=== PATIENT | male | born 1970 | race Caucasian/White ===

== ENCOUNTER 2016-06-08 14:14 | Emergency (ER) | payer OTHER, SELFPAY ==
[2016-06-08 14:29] VITALS: BMI 38.0
[2016-06-08] MEDS ORDERED: NS 1,000 ML IV ONE (14:50)
[2016-06-08] MEDS ORDERED: SODIUM CHLORIDE 0.9% 3 ML FLUSH FLUSH PRN (14:50)
[2016-06-08] MEDS ORDERED: ONDANSETRON HCL 4 MG/2 ML VIAL IV ONE ×2 (15:05→17:31)
[2016-06-08] MEDS ORDERED: MORPHINE 4 MG/ML INJECTION IV ONE (15:05)
--- NOTE | 2016-06-08 15:08 | EDPRACDOC ---
- General Information Information Source: Patient Mode Of Arrival: Ambulance - History of Present Illness Onset: this am Pain Location: Reports: Epigastric, LUQ Pain Context: Reports: Spontaneous Pain Severity: Moderate Pain Quality: Reports: Aching Adult Abdominal History: Reports: Similar Pain (dx) Modifying Factors: improves with: Nothing Associated Signs & Symptoms: Reports: Nausea, Vomiting, Diarrhea. Denies: Hematemesis, Melena, Dysuria, Fever, Urgency Oral Intake: Decreased Urinary Output: Decreased <Lisa Garces - Last Filed: 06/08/16 15:05> <Hill Coates - Last Filed: 06/08/16 21:11> - General Information Chief Complaint: Abdominal Pain Stated Complaint: ABD. AND BACK PAIN Time Seen by Provider: 06/08/16 14:50 Home Medications: Home Medications Enalapril Maleate [Vasotec] 20 mg PO DAILY 05/20/14 Metoprolol Tartrate [Lopressor] 100 mg PO BID 05/20/14 Verapamil HCl [Verapamil ER] 120 mg PO DAILY 05/20/14 Vitamin B Complex [B Complex] 1 tab PO DAILY 05/20/14 Vitamins, Multiple [Unicap] 1 cap PO DAILY 05/20/14 Gabapentin [Neurontin] 900 mg PO TID 04/14/15 HydrOXYzine Pamoate (Anxiety) [Vistaril] 25 mg PO Q8H PRN 04/14/15 Tramadol HCl [Ultram] 100 mg PO DAILY 04/14/15 Omeprazole 20 mg PO DAILY 06/08/16 Sildenafil Citrate [Viagra] 100 mg PO DIR PRN 06/08/16 Zolpidem Tartrate [Ambien] 10 mg PO QHS PRN 06/08/16 Allergies/Adverse Reactions: Allergies Allergy/AdvReac Type Severity Reaction Status Date / Time No Known Allergies Allergy Verified 04/14/15 09:47 - History of Present Illness HPI: Patient reports he is a heavy drinker, reports he has a hx of pancreatitis and has upper abdominal pain and low back pain since this AM. Patient reports nausea /vomiting/diarrhea. Feels "hot" but no know fever. Denies CP, SOB. Reports drank 7 beers today - normally drinks 24. Denies bloody stool or emesis. (Lisa Garces MD NOTE SEEN AND EXAMINED; N/V/D; LONG HX OF ETOH. INTOXICATED HERE. (Hill Coates) ED Past Medical History - History Reviewed Yes Nurses notes reviewed and agree except as marked - Patient Medical History Cardiac History: Reports: Hypertension, Hypercholesterolemia (Intermittent) Respiratory History: Denies: Asthma, COPD Psychological History: Reports: Depression, Anxiety Systemic History: Denies: Cancer - Family Medical History Reports: Hypertension (FATHER), Diabetes (MOTHER), Cardiac Disorders - Social Medical History Smoking Status: Current some day smoker ETOH: Alcoholic Substance Abuse: None Lives In: Home <Ileana Garcestany Rk - Last Filed: 06/08/16 15:05> EDM Review of Systems - Review of Systems ROS Negative Except as Marked: Yes All systems reviewed and were negative except as marked Constitutional: No Symptoms Reported Eyes: No Symptoms Reported Ears: No Symptoms Reported Respiratory: No Symptoms Reported Cardiovascular: No Symptoms Reported Gastrointestinal: Diarrhea, Nausea, Pain, Vomiting Genitourinary: No Symptoms Reported Neurological: No Symptoms Reported <Ileana Garcestany Rk Last Filed: 06/08/16 15:05> - Physical Exam Constitutional: Alert (Awake), No apparent distress Oriented to: Time, Person, Place - HEENT Head: Normal ( normocephalic) Eye Exam: Normal (PERRL, EOMI, Sclera white) Nose: No Symptoms Reported (septum midline) Neck: Normal (FROM, trachea at midline) - Respiratory/Cardiovascular Respiratory: Normal - CTA (BBS clear to auscultation without adventitious sounds ) Cardiovascular: Normal (RRR without murmur, gallop or rub) - GI Auscultation: Normal (NABS) Tenderness: Moderate, LUQ, Epigastric - Musculoskeletal Back: Normal (Non-Tender) Extremities: Normal (Normal tone, Pulses 2+ No cyanosis or edema, FROM) - Integumentary Skin: Normal, Warm, Dry Lymphatics: Normal (no adenopathy) - Neurologic Memory Impaired: Normal Motor Function: Normal (Normal tone, Pulses 2+ No cyanosis or edema, FROM) Mood Description: Normal Thought: Coherent <DezLisa Rk - Last Filed: 06/08/16 15:05> <Lisa Garces Rk - Last Filed: 06/08/16 15:05> - Results 06/08/16 14:33 06/08/16 14:33 <Hill Coates - Last Filed: 06/08/16 21:11> - Results WBC 7.0 xk/uL (3.8-10.8) 06/08/16 14:33 RBC 5.49 xM/uL (4.70-6.10) 06/08/16 14:33 Hgb 16.8 g/dL (14.0-18.0) 06/08/16 14:33 Hct 49.3 % (42-52) 06/08/16 14:33 MCV 90 fL (80-94) 06/08/16 14:33 MCH 30.6 pg (27-32) 06/08/16 14:33 MCHC 34.1 g/dl (33-36) 06/08/16 14:33 RDW 15.6 % (11.5-14.5) H 06/08/16 14:33 Plt Count 108 xk/uL (130-400) L 06/08/16 14:33 MPV 9.1 fL (7.4-10.4) 06/08/16 14:33 Neut % (Auto) 59.1 % (45-76) 06/08/16 14:33 Lymph % (Auto) 33.7 % (17-44) 06/08/16 14:33 [place] % (Auto) 6.4 % (3-10) 06/08/16 14:33 Eos % (Auto) 0.3 % (0-5) 06/08/16 14:33 Baso % (Auto) 0.5 % (0-2) 06/08/16 14:33 Absolute Neuts (auto) 4.13 xk/uL (1.7-8.2) 06/08/16 14:33 Absolute Lymphs (auto) 2.31 xk/uL (0.65-4.75) 06/08/16 14:33 PT 14.0 SEC (9.2-11.2) H 06/08/16 19:00 INR 1.4 06/08/16 19:00 Puncture Site Right radial 06/08/16 16:40 pH 7.360 pH UNITS (7.35-7.45) 06/08/16 16:40 pCO2 44.0 mmHg (35-45) 06/08/16 16:40 pO2 65.0 mmHg (80-100) L 06/08/16 16:40 HCO3 24.9 MMOL/L (22-26) 06/08/16 16:40 Total CO2 26.3 MMOL/L (23-27) 06/08/16 16:40 Base Excess -0.8 (+/- 2) 06/08/16 16:40 FiO2 % 0.21 06/08/16 16:40 Specimen Drawn By Piksa 06/08/16 16:40 Sodium 127 mEq/L (137-146) L 06/08/16 14:33 Potassium 4.7 mEq/L (3.5-5.1) 06/08/16 14:33 Chloride 89 mEq/L (98-107) L 06/08/16 14:33 Carbon Dioxide 21 mMOL/L (22-33) L 06/08/16 14:33 Anion Gap 22 mEq/L (8-16) H 06/08/16 14:33 BUN 12 MG/DL (9-20) 06/08/16 14:33 Creatinine 0.60 MG/DL (0.66-1.25) L 06/08/16 14:33 Estimated GFR (MDRD) > 60 mL/min (>=60) 06/08/16 14:33 Glucose 111 MG/DL (70-99) H 06/08/16 14:33 Calculated Osmolality 246 MOs/Kg (270-290) L 06/08/16 14:33 Calcium 8.5 MG/DL (8.4-10.2) 06/08/16 14:33 Total Bilirubin 5.6 MG/DL (0.2-1.3) H 06/08/16 14:33 AST 363 IU/L (17-59) H 06/08/16 14:33 ALT 194 IU/L (21-72) H 06/08/16 14:33 Alkaline Phosphatase 266 IU/L (38-126) H 06/08/16 14:33 Ammonia < 9.0 umol/L (9.0-30.0) L 06/08/16 19:00 Total Protein 8.0 G/DL (6.3-8.2) 06/08/16 14:33 Albumin 4.1 G/DL (3.5-5.0) 06/08/16 14:33 Lipase 358 U/L (23-300) H 06/08/16 14:33 Urine Color Yellow 06/08/16 17:15 Urine Clarity Clear 06/08/16 17:15 Urine pH 5.0 (5.0-8.0) 06/08/16 17:15 Ur Specific [place] 1.005 (1.003-1.035) 06/08/16 17:15 Urine Protein Neg (NEG/TRACE) 06/08/16 17:15 Urine Glucose (UA) Neg (NEGATIVE) 06/08/16 17:15 Urine Ketones Neg (NEGATIVE) 06/08/16 17:15 Urine Occult Blood Neg (NEG/TRACE) 06/08/16 17:15 Urine Nitrite Neg (NEGATIVE) 06/08/16 17:15 Urine Bilirubin Neg (NEGATIVE) 06/08/16 17:15 Urine Urobilinogen 0.2 MG/DL (0-1) 06/08/16 17:15 Ur Leukocyte Esterase Neg (NEGATIVE) 06/08/16 17:15 Urine RBC 0-2 (0-2) 06/08/16 17:15 Urine WBC 0-2 (0-2) 06/08/16 17:15 Urine Bacteria Few (NEG/FEW) 06/08/16 17:15 Hyaline Casts 0-2 (0-2) 06/08/16 17:15 Urine Opiates Screen *positive* (NEGATIVE) H 06/08/16 17:15 Ur Oxycodone Screen Neg (NEGATIVE) 06/08/16 17:15 Urine Methadone Screen Neg (NEGATIVE) 06/08/16 17:15 Ur Barbiturates Screen Neg (NEGATIVE) 06/08/16 17:15 Ur Tricyclics Screen Neg (NEGATIVE) 06/08/16 17:15 Ur Phencyclidine Scrn Neg (NEGATIVE) 06/08/16 17:15 Ur Amphetamines Screen Neg (NEGATIVE) 06/08/16 17:15 U Methamphetamines Scrn Neg (NEGATIVE) 06/08/16 17:15 Urine MDMA Screen Neg (NEGATIVE) 06/08/16 17:15 U Benzodiazepines Scrn Neg (NEGATIVE) 06/08/16 17:15 Urine Cocaine Screen Neg (NEGATIVE) 06/08/16 17:15 Ur THC Screen Neg (NEGATIVE) 06/08/16 17:15 Plasma/Serum Ethyl Alc 0.24 % (<0.01) H 06/08/16 14:33 Lab Results 06/08/16 06/08/16 06/08/16 19:00 19:00 17:15 WBC RBC Hgb Hct MCV MCH MCHC RDW Plt Count MPV Neut % (Auto) Lymph % (Auto) [place] % (Auto) Eos % (Auto) Baso % (Auto) Absolute Neuts (auto) Absolute Lymphs (auto) PT 14.0 H INR 1.4 Puncture Site pH pCO2 pO2 HCO3 Total CO2 Base Excess FiO2 % Specimen Drawn By Sodium Potassium Chloride Carbon Dioxide Anion Gap BUN Creatinine Estimated GFR (MDRD) Glucose Calculated Osmolality Calcium Total Bilirubin AST ALT Alkaline Phosphatase Ammonia < 9.0 L Total Protein Albumin Lipase Urine Color Yellow Urine Clarity Clear Urine pH 5.0 Ur Specific [place] 1.005 Urine Protein Neg Urine Glucose (UA) Neg Urine Ketones Neg Urine Occult Blood Neg Urine Nitrite Neg Urine Bilirubin Neg Urine Urobilinogen 0.2 Ur Leukocyte Esterase Neg Urine RBC 0-2 Urine WBC 0-2 Urine Bacteria Few Hyaline Casts 0-2 Urine Opiates Screen Ur Oxycodone Screen Urine Methadone Screen Ur Barbiturates Screen Ur Tricyclics Screen Ur Phencyclidine Scrn Ur Amphetamines Screen U Methamphetamines Scrn Urine MDMA Screen U Benzodiazepines Scrn Urine Cocaine Screen Ur THC Screen Plasma/Serum Ethyl Alc 06/08/16 06/08/16 06/08/16 17:15 16:40 14:33 WBC 7.0 RBC 5.49 Hgb 16.8 Hct 49.3 MCV 90 MCH 30.6 MCHC 34.1 RDW 15.6 H Plt Count 108 L MPV 9.1 Neut % (Auto) 59.1 Lymph % (Auto) 33.7 [place] % (Auto) 6.4 Eos % (Auto) 0.3 Baso % (Auto) 0.5 Absolute Neuts (auto) 4.13 Absolute Lymphs (auto) 2.31 PT INR Puncture Site Right radial pH 7.360 pCO2 44.0 pO2 65.0 L HCO3 24.9 Total CO2 26.3 Base Excess -0.8 FiO2 % 0.21 Specimen Drawn By Piksa Sodium Potassium Chloride Carbon Dioxide Anion Gap BUN Creatinine Estimated GFR (MDRD) Glucose Calculated Osmolality Calcium Total Bilirubin AST ALT Alkaline Phosphatase Ammonia Total Protein Albumin Lipase Urine Color Urine Clarity Urine pH Ur Specific [place] Urine Protein Urine Glucose (UA) Urine Ketones Urine Occult Blood Urine Nitrite Urine Bilirubin Urine Urobilinogen Ur Leukocyte Esterase Urine RBC Urine WBC Urine Bacteria Hyaline Casts Urine Opiates Screen *positive* H Ur Oxycodone Screen Neg Urine Methadone Screen Neg Ur Barbiturates Screen Neg Ur Tricyclics Screen Neg Ur Phencyclidine Scrn Neg Ur Amphetamines Screen Neg U Methamphetamines Scrn Neg Urine MDMA Screen Neg U Benzodiazepines Scrn Neg Urine Cocaine Screen Neg Ur THC Screen Neg Plasma/Serum Ethyl Alc 06/08/16 06/08/16 14:33 14:33 WBC RBC Hgb Hct MCV MCH MCHC RDW Plt Count MPV Neut % (Auto) Lymph % (Auto) [place] % (Auto) Eos % (Auto) Baso % (Auto) Absolute Neuts (auto) Absolute Lymphs (auto) PT INR Puncture Site pH pCO2 pO2 HCO3 Total CO2 Base Excess FiO2 % Specimen Drawn By Sodium 127 L Potassium 4.7 Chloride 89 L Carbon Dioxide 21 L Anion Gap 22 H BUN 12 Creatinine 0.60 L Estimated GFR (MDRD) > 60 Glucose 111 H Calculated Osmolality 246 L Calcium 8.5 Total Bilirubin 5.6 H AST 363 H ALT 194 H Alkaline Phosphatase 266 H Ammonia Total Protein 8.0 Albumin 4.1 Lipase 358 H Urine Color Urine Clarity Urine pH Ur Specific [place] Urine Protein Urine Glucose (UA) Urine Ketones Urine Occult Blood Urine Nitrite Urine Bilirubin Urine Urobilinogen Ur Leukocyte Esterase Urine RBC Urine WBC Urine Bacteria Hyaline Casts Urine Opiates Screen Ur Oxycodone Screen Urine Methadone Screen Ur Barbiturates Screen Ur Tricyclics Screen Ur Phencyclidine Scrn Ur Amphetamines Screen U Methamphetamines Scrn Urine MDMA Screen U Benzodiazepines Scrn Urine Cocaine Screen Ur THC Screen Plasma/Serum Ethyl Alc 0.24 H (Hill Coates) - Additional Information HOSP SPOKE WITH [facility]. NOW [facility] WANTS HIM TRANSFERRED. NO GI COVERAGE AT THIS WEEK. [facility]----NO BEDS CALLED [facility]=-WILL NOT ACCEPT; TOO MANY PTS IN LOBBY AND TOO MANY WAITING FOR ADMISSION NOW TRYING OTHER HOSPITALS IN [facility] AND [facility] [address]. SHE WILL TRY TO LOCATE OTHER SISTER FACILITIES (Hill Coates) <Lisa Garces - Last Filed: 06/08/16 15:05> - Departure Yes I personally saw and evaluated the patient. Disposition: Trans. to Other Hospital Decision to Transfer Time: 19:30 (BRYN) Decision to Admit Time: 18:43 (ALBA) Decision to admit date: 06/08/16 Decision to admit: from ED - Physician Consulted GI Time Called: 18:43 (KRAIG) <Hill Coates - Last Filed: 06/08/16 21:11> - Departure Condition: Good Final Diagnosis: Abdominal pain, ACUTE ON CHRONIC ALCOHOLIC HEPATITIS, ELEVATED LFT'S, HYPERBILIRUBINEMIA, MILD PANCREATITIS Referrals: Kadeem Yarbrough MD [Primary Care Provider] - One Week
[2016-06-08 15:26] LABS: AUTOMATED BASOPHIL 0.5 % (0-2); AUTOMATED EOSINOPHIL 0.3 % (0-5); AUTOMATED LYMPH 33.7 % (17-44); AUTOMATED MONOCYTE 6.4 % (3-10); AUTOMATED NEUTROPHIL 59.1 % (45-76); MPV 9.1 fL (7.4-10.4)
[2016-06-08 15:42] LABS: BLOOD UREA NITROGEN 12 MG/DL (9-20); CALCIUM 8.5 MG/DL (8.4-10.2); CALCULATED OSMOLALITY 246 MOs/Kg (270-290); CHLORIDE 89 mEq/L (98-107); GLUCOSE 111 MG/DL (70-99); SODIUM LEVEL 127 mEq/L (137-146)
[2016-06-08] MEDS ORDERED: Pharmacy Review for Metformin - IV Contrast Given SCH (16:00)
[2016-06-08 16:46] LABS: ABG Draw Site Right Radial; ALLEN'S TEST PASS; BEb -0.8 (+/- 2); TCO2 26.3 MMOL/L (23-27)
--- NOTE | 2016-06-08 16:49 | DIRPT ---
CLINICAL DATA: 45-year-old male with history of abdominal pain in the upper abdomen and low back pain since this morning. Nausea, vomiting and diarrhea. History pancreatitis. EXAM: CT ABDOMEN AND PELVIS WITH CONTRAST TECHNIQUE: Multidetector CT imaging of the abdomen and pelvis was performed using the standard protocol following bolus administration of intravenous contrast. CONTRAST: 100 mL of Isovue 370. COMPARISON: CT the abdomen and pelvis 01/03/2012. FINDINGS: Lower chest: Unremarkable. Hepatobiliary: Diffuse low attenuation throughout the hepatic parenchyma, compatible with severe hepatic steatosis. Nodular liver contour, suggestive of developing hepatic cirrhosis. No definite cystic or solid hepatic lesions. No intra or extrahepatic biliary ductal dilatation. Gallbladder is normal in appearance. Pancreas: No pancreatic mass. No pancreatic ductal dilatation. No pancreatic or peripancreatic fluid or inflammatory changes. Spleen: Unremarkable. Adrenals/Urinary Tract: Sub cm low-attenuation lesion in the lateral aspect of the interpolar region of the left kidney is too small to definitively characterize, but is favored to represent a small cyst. Right kidney and bilateral adrenal glands are normal in appearance. No hydroureteronephrosis. Urinary bladder is normal in appearance. Stomach/Bowel: Normal appearance of the stomach. No pathologic dilatation of small bowel or colon. Normal appendix. Vascular/Lymphatic: Minimal atherosclerosis throughout the abdominal and pelvic vasculature, without evidence of aneurysm or dissection. Portal vein is dilated measuring 22 mm in diameter. Recannulized paraumbilical vein. Numerous small portosystemic collateral pathways noted in the upper abdomen, throughout the omentum and along the lesser curvature of the stomach. No lymphadenopathy noted in the abdomen or pelvis. Reproductive: Prostate gland and seminal vesicles are unremarkable in appearance. Other: Small umbilical hernia containing only omental fat incidentally noted. No significant volume of ascites. No pneumoperitoneum. Musculoskeletal: There are no aggressive appearing lytic or blastic lesions noted in the visualized portions of the skeleton. IMPRESSION: 1. No acute abnormalities in the abdomen or pelvis to account for the patient's symptoms. 2. Severe hepatic steatosis. 3. Morphologic changes in the liver compatible with underlying cirrhosis. Evidence of developing portal hypertension, as above. 4. Normal appendix. 5. Mild atherosclerosis. Electronically Signed By: Gigi Enrique M.D. On: 06/08/2016 16:47
--- NOTE | 2016-06-08 17:10 | DIRPT ---
CLINICAL DATA: Upper abdominal pain. Smoker. EXAM: CHEST 2 VIEW COMPARISON: 04/14/2015. FINDINGS: Poor inspiration. Grossly normal sized heart. Clear lungs. Thoracic spine degenerative changes. IMPRESSION: No acute abnormality. Electronically Signed By: Ramón Barnhart M.D. On: 06/08/2016 17:08
[2016-06-08] MEDS ORDERED: HYDROmorphone 1 MG INJECTION IV ONE (17:31)
[2016-06-08 17:34] LABS: ALL NEG? NO
[2016-06-08 17:45] LABS: RBC/URINE 0-2 (0-2); WBC/URINE 0-2 (0-2)
[2016-06-08 17:46] LABS: LEUKOCYTES/URINE NEG (NEGATIVE); NITRITE/URINE NEG (NEGATIVE); URINE OCCULT BLOOD NEG (NEG/TRACE)
[2016-06-08 17:51] LABS: MDMA* NEG (NEGATIVE); METHAMPHETAMINES NEG (NEGATIVE); OXYCODONE NEG (NEGATIVE)
[2016-06-08] MEDS ORDERED: SODIUM CHLORIDE 0.9% 3 ML FLUSH FLUSH SCH (18:00)
[2016-06-08] MEDS ORDERED: PROMETHAZINE 25 MG/ML VIAL IV ONE (19:05)
--- NOTE | 2016-06-08 19:09 | DIRPT ---
CLINICAL DATA: Abdominal pain for 1 day. EXAM: US ABDOMEN LIMITED - RIGHT UPPER QUADRANT COMPARISON: Abdomen CT obtained earlier today. Abdomen ultrasound dated 09/07/2010. FINDINGS: Gallbladder: No gallstones or wall thickening visualized. No sonographic Godinez sign noted by sustainability director. Common bile duct: Diameter: Not visualized due to marked increased echogenicity of the liver and patient body habitus. Liver: Markedly diffusely echogenic with obscuration of the internal architecture of the liver. Corresponding diffuse low density on the recent CT. IMPRESSION: 1. Marked diffuse hepatic steatosis. 2. Normal appearing gallbladder. 3. Nonvisualized common duct and internal liver architectural due to the diffuse steatosis and patient body habitus. Electronically Signed By: Ramón Barnhart M.D. On: 06/08/2016 19:06
[2016-06-08 19:16] LABS: PT-INR 1.4
[2016-06-08] MEDS ORDERED: LORAZEPAM 2 MG/ML VIAL IV ONE ×2 (20:40→22:07)
[2016-06-08] MEDS ORDERED: CHLORDIAZEPOXIDE 25 MG CAP PO ONE (20:40)
[2016-06-09 00:19] VITALS: BP 146/82; PULSE 114; TEMP 98.1
== END 2016-06-08 23:42 | disposition short-term general hospital (02) ==
LOC: ED 14:14
DX: K70.10 Alcoholic hepatitis without ascites (principal); E80.6 Other disorders of bilirubin metabolism; K85.90 Acute pancreatitis without necrosis or infection, unspecified
CPT/HCPCS: 36415; 36600; 71020; 74177; 76705; 80053; 80307; 81001; 82140; 82803; 83690; 85025; 85610; 96361; 96374; 96375; 96376; 99284; A9698; J1170; J2060; J2270; J2405; J2550; J3490